=== PATIENT | female | born 1985 | race Caucasian/White ===

== ENCOUNTER 2016-08-01 13:57 | Emergency (ER) | payer MEDICAID, OTHER ==
[2016-08-01 14:44] LABS: HCG,QUALITATIVE URINE NEGATIVE
[2016-08-01] MEDS ORDERED: ONDANSETRON 4 MG/2ML 2 ML VIAL ONE (15:16)
[2016-08-01] MEDS ORDERED: SODIUM CHLORIDE 0.9% 1,000 ML ONE (15:17)
[2016-08-01 15:30] LABS: ABSOLUTE NEUTROPHIL COUNT 6.4 K/mm3 (1.8-7.7); BASO % 0.3 % (0.2-1.0); EOS % 0.6 % (0.9-2.9); HEMATOCRIT 40.2 % (37.0-47.0); HEMOGLOBIN 13.8 gm/l (12.0-16.0); IMM NEUT% 0.4 % (0-1); LYMPH # 0.5 (1.0-4.8); LYMPH % 6.5 % (15-45); MEAN CELL VOLUME 91.8 fl (81.0-99.0); MEAN CORPUSCULAR HEMOGLOBIN 31.5 pg (27.0-31.0); MEAN CORPUSCULAR HGB CONC 34.3 g/dl (33.0-37.0); MEAN PLATELET VOLUME 10.3 fl (7.4-10.4); MONO # 0.2 (0.0-0.8); MONO % 3.3 % (4-12); NEUT % 88.9 % (43-75); PLATELET COUNT 169 K/mm3 (130-400); RED CELL DISTRIBUTION WIDTH 12.1 % (11.5-14.5)
[2016-08-01 15:53] LABS: ALB/GLOB RATIO 1.4 (>1.0); ALBUMIN 3.8 gm/dL (3.5-5.7); CALCIUM 8.5 mg/dL (8.6-10.3)
== END 2016-08-01 16:40 | disposition home or self-care (01) ==
LOC: ED 13:57
DX: E86.0 Dehydration (principal); R11.2 Nausea with vomiting, unspecified; R19.7 Diarrhea, unspecified
CPT/HCPCS: 81025; 85025; 80053; 99283 ×2; 96374; 96361; J2405; J7030